=== PATIENT | female | born 1970 | race Caucasian/White ===

== ENCOUNTER 2016-11-06 11:11 | Emergency (ER) | payer OTHER | END 2016-11-06 12:14 | disposition home or self-care (01) | LOC: EDSTATUS 11:11 → ED 11:11 | DX: M54.2 Cervicalgia (principal); M54.9 Dorsalgia, unspecified; F17.210 Nicotine dependence, cigarettes, uncomplicated; X50.3XXD Overexertion from repetitive movements, subsequent encounter; Y99.0 Civilian activity done for income or pay ==